=== PATIENT | male | born 1960 | race Caucasian/White ===

== ENCOUNTER 2024-01-15 10:50 | Emergency (ER) | payer BC ==
[2024-01-15 11:16] LABS: #Basophils 0.04 10x3/uL (0.0-0.2); %Basophils 0.4 % (0.0-1.0); %Eosinophils 0.5 % (0.0-10.0); %Lymphocytes 18.7 % (21.0-51.0); %Monocytes 6.8 % (0.0-10.0); %Neutrophils 73.1 % (42.0-75.0); Hematocrit 42.4 % (42.0-52.0); Mean Corpuscular HGB CONC 35.4 g/dL (32.0-36.0); Mean Corpuscular Hemoglobin 33.5 pg (27.0-31.0); Mean Corpuscular Volume 94.6 fL (78.0-98.0); Platelet Count 238 10x3/uL (130-400); RBC Distribution Width 14.9 % (11.5-14.5); Red Blood Cell (RBC) Count 4.48 mill/uL (4.70-6.10)
[2024-01-15 11:44] LABS: ALT (SGPT) 53 U/L (8-55); AST (SGOT) 56 U/L (5-34); Albumin 4.1 g/dL (3.4-4.8); Alkaline Phosphatase 59 U/L (40-110); Anion Gap 18 mmol/L (10-20); BUN (Urea Nitrogen) 9 mg/dL (8.4-25.7); Bilirubin, Total 0.6 mg/dL (0.2-1.2); Calc. Creatinine Clearance 0 mL/min (70-130); Calcium 9.2 mg/dL (7.8-10.44); Carbon Dioxide 23 mmol/L (23-31); Chloride 105 mmol/L (98-107); Estimated GFR 101; Globulin 3.1 g/dL (2.4-3.5); Glucose 86 mg/dL (80-115); Magnesium 1.8 mg/dL (1.6-2.6); Potassium 3.9 mmol/L (3.5-5.1); Protein, Total 7.2 g/dL (5.8-8.1); Sodium 142 mmol/L (136-145)
[2024-01-15] MEDS ORDERED: Acetaminophen 500 MG TAB ONE (11:52)
[2024-01-15 12:01] LABS: Troponin I Less than 0.010 ng/mL (< 0.028)
[2024-01-15] MEDS ORDERED: Sucralfate 1 GM/10 ML UDCUP ONE (13:06)
[2024-01-15] MEDS ORDERED: Morphine 4 MG/ML VIAL ONE (13:06)
[2024-01-15 14:07] LABS: Troponin I Less than 0.010 ng/mL (< 0.028)
== END 2024-01-15 14:15 | disposition home or self-care (01) ==
LOC: ERS 10:50 → EEVIPCON 10:50 → ERS 14:15
DX: J98.4 Other disorders of lung (principal); R91.1 Solitary pulmonary nodule; R07.89 Other chest pain; J45.909 Unspecified asthma, uncomplicated; Z79.899 Other long term (current) drug therapy
CPT/HCPCS: 36415; 71045; 71275; 80053; 83735; 84484; 85025; 93005; 96374; J2270